=== PATIENT | male | born 1935 | race Asian ===

== ENCOUNTER 2019-08-04 13:06 | Inpatient (IN) | payer OTHER, BC ==
[~2019-08-04] VITALS: Ht 165.1 cm; Wt 59.0 kg
--- NOTE | 2019-08-04 13:21 | NUR ---
Patient to ER bed 3 to gown for evaluation. Side rails up. Report given to Dianne SIMON.
[2019-08-04 13:22] VITALS: BP_SYST 111
--- NOTE | 2019-08-04 13:22 | NUR ---
Pt brought by ambulance, Alert to name, pt presents to ER with abnormal labs, BUN and creatine , pt afebrile. VSS, respirations even and unlabored, cap refill <3, pt is no-verbal, will continue to monitor.
[2019-08-04 13:49] LABS: BASOPHILS % (AUTO) 0.7 % (0.0-2.0); EOSINOPHILS # (AUTO) 0.2 K/uL (0.0-0.4); EOSINOPHILS % (AUTO) 2.7 % (0.0-4.0); HEMATOCRIT 37.5 % (36-54); HEMOGLOBIN 12.1 g/dL (14.0-18.0); LYMPHOCYTES # (AUTO) 1.8 K/uL (1.0-5.5); LYMPHOCYTES % (AUTO) 29.1 % (20.5-51.5); MEAN CORPUSCULAR HEMOGLOBIN 29 pg (27-31); MEAN CORPUSCULAR HGB CONC 32 % (32-36); MEAN CORPUSCULAR VOLUME 90 fL (79.0-98.0); MONOCYTES # (AUTO) 0.6 K/uL (0.0-1.0); MONOCYTES % (AUTO) 9.5 % (1.7-9.3); NEUTROPHILS # (AUTO) 3.5 K/uL (1.8-7.7); PLATELET COUNT (AUTO) 241 K/uL (130-430); RED BLOOD CELL COUNT(AUTO) 4.18 MIL/uL (4.2-6.2); RED CELL DISTRIBUTION WIDTH 17.5 % (9.0-15.0)
--- NOTE | 2019-08-04 13:49 | NUR ---
REport given to Elier SIMON
[2019-08-04 14:01] LABS: ANION GAP 5 (5-15); CALCIUM 8.7 mg/dL (8.4-11.0); CHLORIDE 106 mmol/L (98-107); CREATININE 2.37 mg/dL (0.55-1.30); GLUCOSE 146 mg/dL (70-99); POTASSIUM 5.1 mmol/L (3.5-5.1); SODIUM SERUM 139 mmol/L (136-145); UREA NITROGEN, BLOOD 41 mg/dL (8-21)
[2019-08-04 14:06] LABS: ALANINE AMINOTRANSFERASE 13 U/L (12-78); ASPARTATE AMINOTRANSFERASE 19 U/L (10-37); TOTAL BILIRUBIN 0.3 mg/dL (0.0-1.0)
--- NOTE | 2019-08-04 14:10 | NUR ---
ER at bedside examining patient.
[2019-08-04] MEDS ORDERED: NS 500 ML IV ONE (14:30)
[2019-08-04] MEDS ORDERED: LEVO100T9 PO (15:59)
[2019-08-04] MEDS ORDERED: FENO160 PO (15:59)
[2019-08-04] MEDS ORDERED: PIOG30TA71 PO (15:59)
[2019-08-04] MEDS ORDERED: OMEP20CA11 PO (15:59)
[2019-08-04] MEDS ORDERED: INSU100V9 SQ (15:59)
[2019-08-04] MEDS ORDERED: EPOE1VIA13 SUBCUT (15:59)
[2019-08-04] MEDS ORDERED: NEPH PO (15:59)
[2019-08-04] MEDS ORDERED: DOCU-144 PO (15:59)
[2019-08-04] MEDS ORDERED: FERR140T2 PO (15:59)
[2019-08-04] MEDS ORDERED: SIMV40TA5 PO (15:59)
[2019-08-04] MEDS ORDERED: VITD2000 PO (15:59)
[2019-08-04] MEDS ORDERED: ENAL5TAB77 PO (15:59)
--- NOTE | 2019-08-04 16:00 | NUR ---
Medication reconsiliation completed based upon list of medications from SNF.
--- NOTE | 2019-08-04 17:00 | NUR ---
transferred care to [facility] RN. room assignment 113B. patient alert, awake, orientedx2, mongolian speaking, cc of abnormal labs, nonproductive cough noted. dx of renal insuffiency, vital sign stable, afebrile. belongings check and sent with patient. no other concerned noted.
--- NOTE | 2019-08-04 17:08 | NUR ---
Admission Note Received patient from ER with diagnosis of [RENAL INSUFFICIENCY]. Initial Plan of Care discussed-patient. Oriented to room, call light, pain management and safety. PATIENT WILL NEED FOLLOW UP ON ABOVE
--- NOTE | 2019-08-04 17:19 | NUR ---
CONSULTATION: REASON FOR CONSULT: RENAL INSUFFICIENCY CONSULTING PHYSICIAN: MARTHA GAMBOA MD ORDERED BY: KURT SPOKE WITH JOSS FROM [facility] [phone]
--- NOTE | 2019-08-04 17:24 | NUR ---
Initial Note SBAR received from [facility]. Patient AOx1. Pt brought to room via gurney. On room air, denies any pain or discomfort. Room close to nursing station. Bed in low and locked position, bed alarm on. Call light within reach.
[2019-08-04 17:25] VITALS: BP_SYST 134
[2019-08-04 18:24] LABS: BILIRUBIN,URINE NEGATIVE (NEGATIVE); BLOOD, URINE NEGATIVE (NEGATIVE); CLARITY/URINE CLEAR (CLEAR); COLOR,URINE YELLOW (YELLOW); GLUCOSE,URINE NEGATIVE (NEGATIVE); KETONES,URINE NEGATIVE (NEGATIVE); LEUKOCYTE ESTERASE ,URINE NEGATIVE (NEGATIVE); NITRITE, URINE NEGATIVE (NEGATIVE); PROTEIN URINE NEGATIVE (NEGATIVE)
--- NOTE | 2019-08-04 19:26 | NUR ---
CLOSING NOTE BEDSIDE SBAR REPORT GIVEN TO RECEIVING RN. PT RESTING IN BED. NO ACUTE DISTRESS NOTED. BREATHING EVEN AND UNLABORED. CALL LIGHT WITHIN REACH, BED IN LOW AND LOCKED POSITION, BED ALARM ON. PT CARE ENDORSED TO NUTRITION ASSOCIATE NURSE.
--- NOTE | 2019-08-04 19:50 | NUR ---
MD Dr. Alva, nephro made rounds, new consult, new orders received.
--- NOTE | 2019-08-04 20:00 | NUR ---
PM SHIFT ASSESSMENT Received patient lying in bed, aox1, vital signs stable, on room air, no facial grimacing noted for pain, IV line to right hand intact and patent, saline lock, no signs of infiltration noted, patient repositioned with pillow support, fall and safety measures in place, bed alarm on, oriented to call light for nurse assistance, light within reach, will monitor.
[2019-08-04 20:05] VITALS: BP_SYST 153
[2019-08-04 20:38] LABS: ANION GAP 5 (5-15); CALCIUM 8.4 mg/dL (8.4-11.0); CHLORIDE 107 mmol/L (98-107); CREATININE 2.26 mg/dL (0.55-1.30); GLUCOSE 142 mg/dL (70-99); SODIUM SERUM 139 mmol/L (136-145); UREA NITROGEN, BLOOD 40 mg/dL (8-21)
[2019-08-04] MEDS: DOCUSATE SODIUM 100 MG CAPSULE PO SCH (20:45)
[2019-08-04] MEDS ORDERED: INSULIN GLARGINE 100 UNITS/ML 10 ML VIAL SUBCUT SCH (21:00)
--- NOTE | 2019-08-04 22:30 | NUR ---
RN ROUNDS Patient awake, watching tv, denies any pain or discomfort, due medications administered earlier, blood sugar check 126, lantus 10 units given SQ per md order. Patient had a bowel movement, incontinence care provided, repositioned with pillow support, safety and fall precautions in place, will closely monitor.
--- NOTE | 2019-08-05 00:07 | NUR ---
Consultation Paged Reason for consultation: UTI Was consult called: Y Person who was notified: Mona Consulting Physician: Sly Ocampo Data Report Analyst Ordering Physician: Dr. Gilman
--- NOTE | 2019-08-05 00:28 | NUR ---
RN ROUNDS Patient sleeping, respirations even and unlabored, vital signs stable, repositioned with pillow support, fall and safety measures in place, will monitor.
[2019-08-05 01:00] VITALS: BP_SYST 144
--- NOTE | 2019-08-05 02:14 | NUR ---
RN ROUNDS Patient sleeping, respirations even and unlabored, fall and safety measures in place, will monitor.
--- NOTE | 2019-08-05 04:10 | NUR ---
RN ROUNDS Patient continues to sleep, respirations even and unlabored, repositioned for comfort, fall and safety measures in place, will continue to monitor.
[2019-08-05] MEDS: LEVOTHYROXINE SODIUM 0.1 MG TABLET PO SCH (05:52)
--- NOTE | 2019-08-05 06:03 | NUR ---
RN ROUNDS Patient awake and watching tv, in no distress, due medications administered, aspiration precautions maintained, repositioned with pillow support, fall and safety measures maintained, will continue to monitor until report given to am nurse.
[2019-08-05 07:30] VITALS: BP_SYST 151
--- NOTE | 2019-08-05 07:30 | NUR ---
AM rounds: Patient is alert. Able to state full name. Pointed out to his name band when asked for his birthday and age. Patient nodded his head when asked if he understood setswana. Does not appear in pain. Safety precautions in place. Call light within reach.
[2019-08-05 07:50] LABS: BASOPHILS % (AUTO) 0.8 % (0.0-2.0); EOSINOPHILS # (AUTO) 0.2 K/uL (0.0-0.4); EOSINOPHILS % (AUTO) 4.1 % (0.0-4.0); HEMATOCRIT 35.7 % (36-54); HEMOGLOBIN 11.6 g/dL (14.0-18.0); LYMPHOCYTES # (AUTO) 1.6 K/uL (1.0-5.5); LYMPHOCYTES % (AUTO) 31.7 % (20.5-51.5); MEAN CORPUSCULAR HEMOGLOBIN 29 pg (27-31); MEAN CORPUSCULAR HGB CONC 33 % (32-36); MEAN CORPUSCULAR VOLUME 89 fL (79.0-98.0); MONOCYTES # (AUTO) 0.5 K/uL (0.0-1.0); NEUTROPHILS # (AUTO) 2.6 K/uL (1.8-7.7); NEUTROPHILS % (AUTO) 52.4 % (40.0-70.0); PLATELET COUNT (AUTO) 236 K/uL (130-430); RED BLOOD CELL COUNT(AUTO) 3.99 MIL/uL (4.2-6.2)
[2019-08-05 08:04] LABS: ANION GAP 7 (5-15); CALCIUM 8.8 mg/dL (8.4-11.0); CHLORIDE 108 mmol/L (98-107); GLUCOSE 162 mg/dL (70-99); POTASSIUM 5.3 mmol/L (3.5-5.1); SODIUM SERUM 141 mmol/L (136-145); UREA NITROGEN, BLOOD 43 mg/dL (8-21)
[2019-08-05 08:19] LABS: ALANINE AMINOTRANSFERASE 15 U/L (12-78); ALBUMIN 2.8 g/dL (3.4-4.8); ASPARTATE AMINOTRANSFERASE 27 U/L (10-37); PHOSPHORUS 3.4 mg/dL (2.7-4.5); THYROID STIMULATING HORMONE 1.21 uIu/mL (0.36-3.74); TOTAL BILIRUBIN 0.4 mg/dL (0.0-1.0)
[2019-08-05] MEDS: SIMVASTATIN 40 MG TABLET PO SCH (09:12)
[2019-08-05] MEDS: FERROUS SULFATE 142 MG TABLET.ER PO SCH (09:12)
[2019-08-05] MEDS: LISINOPRIL 10 MG TABLET (PRINIVIL) PO SCH (09:13)
[2019-08-05] MEDS: PIOGLITAZONE HCL 15 MG TABLET PO SCH (09:13)
[2019-08-05] MEDS: FENOFIBRATE 160 MG TABLET PO SCH (09:13)
[2019-08-05] MEDS: NEPHROVITE, (FOLIC ACID/VITAMIN B COMP W-C 1 TAB) PO SCH (09:13)
[2019-08-05] MEDS: PANTOPRAZOLE SODIUM 40 MG TAB PO SCH (09:13)
[2019-08-05] MEDS: CHOLECALCIFEROL (VITAMIN D3) 2,000 UNIT TABLET PO SCH (09:13)
[2019-08-05] MEDS: DOCUSATE SODIUM 100 MG CAPSULE PO SCH ×2 (09:13→20:59)
--- NOTE | 2019-08-05 09:13 | NUR ---
AM MEDS: Meds were crushed and given with apple sauce. Patient was coughing when attempted to give pill uncrushed.
[2019-08-05 09:17] LABS: CHOLESTEROL 184 mg/dL (<200); HDL CHOLESTEROL 11 mg/dL (>45); LDL CHOLESTEROL 109 mg/dL (<100); TRIGLYCERIDES 346 mg/dL (30-150)
[2019-08-05 10:01] LABS: URINE SODIUM, RANDOM 120 mmol/L (40-220)
--- NOTE | 2019-08-05 10:03 | NUR ---
Nutrition Update Thiago Scale 18 noted. Pt admitted for renal insufficiency. Diet: 2 gm Na BMI: 21.6 kg/m2 RD to follow per nutrition care standards.
--- NOTE | 2019-08-05 10:45 | NUR ---
labs: Paged Dr. Roberts to report today's lab results.
[2019-08-05 11:31] VITALS: BP_SYST 133
--- NOTE | 2019-08-05 14:27 | NUR ---
Rounds: Patient is awake, no signs of distress noted.
[2019-08-05] MEDS ORDERED: SODIUM POLYSTYRENE SULFONATE 15 GM/60 ML UDBTL PO ONE (15:00)
--- NOTE | 2019-08-05 15:37 | NUR ---
Kayaxelate: Medication was given with aspiration precautions observed. Lab results were reported to Dr. Alva.
[2019-08-05 15:52] VITALS: BP_SYST 119
--- NOTE | 2019-08-05 19:50 | NUR ---
PM SHIFT ASSESSMENT Received patient lying in bed, aox1, vital signs stable, on room air, no facial grimacing noted for pain, IV line to right hand intact and patent, saline lock, no signs of infiltration noted, patient assisted with dinner, aspiration precautions maintained, fall and safety measures in place, bed alarm on, will monitor.
[2019-08-05 20:00] VITALS: BP_SYST 138
[2019-08-05] MEDS: INSULIN GLARGINE 100 UNITS/ML 10 ML VIAL SUBCUT SCH (21:05)
--- NOTE | 2019-08-05 22:00 | NUR ---
RN ROUNDS Patient awake, no facial grimacing noted for pain, due medications administered earlier, blood sugar check 144, lantus 10 units given SQ per md order. Patient had a bowel movement, incontinence care provided, repositioned with pillow support, safety and fall precautions in place, will closely monitor.
[2019-08-06 00:05] VITALS: BP_SYST 135
--- NOTE | 2019-08-06 00:07 | NUR ---
RN ROUNDS Patient resting quietly, respirations even and unlabored, vital signs stable, repositioned with pillow support, fall and safety measures in place, will monitor.
--- NOTE | 2019-08-06 02:09 | NUR ---
RN ROUNDS Patient sleeping, respirations even and unlabored, repositioned with pillow support, fall and safety measures in place, will monitor.
--- NOTE | 2019-08-06 04:02 | NUR ---
RN ROUNDS Patient awake, watching tv, no facial grimacing noted for pain, repositioned with pillow support, fall and safety measures in place, will monitor.
[2019-08-06] MEDS: LEVOTHYROXINE SODIUM 0.1 MG TABLET PO SCH (05:49)
--- NOTE | 2019-08-06 06:03 | NUR ---
RN ROUNDS Patient resting quietly, due medications administered, aspiration precautions maintained, repositioned with pillow support, fall and safety measures maintained, will continue to monitor until report given to am nurse.
[2019-08-06 07:19] LABS: BASOPHILS % (AUTO) 0.6 % (0.0-2.0); EOSINOPHILS # (AUTO) 0.3 K/uL (0.0-0.4); EOSINOPHILS % (AUTO) 5.5 % (0.0-4.0); HEMOGLOBIN 12.6 g/dL (14.0-18.0); LYMPHOCYTES # (AUTO) 1.5 K/uL (1.0-5.5); LYMPHOCYTES % (AUTO) 31.3 % (20.5-51.5); MEAN CORPUSCULAR HEMOGLOBIN 29 pg (27-31); MEAN CORPUSCULAR HGB CONC 32 % (32-36); MEAN CORPUSCULAR VOLUME 90 fL (79.0-98.0); MONOCYTES # (AUTO) 0.5 K/uL (0.0-1.0); MONOCYTES % (AUTO) 9.2 % (1.7-9.3); NEUTROPHILS # (AUTO) 2.6 K/uL (1.8-7.7); NEUTROPHILS % (AUTO) 53.4 % (40.0-70.0); PLATELET COUNT (AUTO) 244 K/uL (130-430); RED BLOOD CELL COUNT(AUTO) 4.36 MIL/uL (4.2-6.2); RED CELL DISTRIBUTION WIDTH 17.7 % (9.0-15.0); WHITE BLOOD COUNT (AUTO) 4.9 K/uL (4.8-10.8)
[2019-08-06 07:30] LABS: ANION GAP 6 (5-15); CALCIUM 8.8 mg/dL (8.4-11.0); CHLORIDE 109 mmol/L (98-107); GLUCOSE 74 mg/dL (70-99); POTASSIUM 4.4 mmol/L (3.5-5.1); SODIUM SERUM 144 mmol/L (136-145); UREA NITROGEN, BLOOD 34 mg/dL (8-21)
[2019-08-06 08:05] VITALS: BP_SYST 155
[2019-08-06] MEDS: CHOLECALCIFEROL (VITAMIN D3) 2,000 UNIT TABLET PO SCH (08:14)
[2019-08-06] MEDS: SIMVASTATIN 40 MG TABLET PO SCH (08:14)
[2019-08-06] MEDS: DOCUSATE SODIUM 100 MG CAPSULE PO SCH ×2 (08:14→20:42)
[2019-08-06] MEDS: LISINOPRIL 10 MG TABLET (PRINIVIL) PO SCH (08:14)
[2019-08-06] MEDS: PIOGLITAZONE HCL 15 MG TABLET PO SCH (08:14)
[2019-08-06] MEDS: PANTOPRAZOLE SODIUM 40 MG TAB PO SCH (08:14)
[2019-08-06] MEDS: NEPHROVITE, (FOLIC ACID/VITAMIN B COMP W-C 1 TAB) PO SCH (08:15)
[2019-08-06] MEDS: FENOFIBRATE 160 MG TABLET PO SCH (08:15)
--- NOTE | 2019-08-06 08:20 | NUR ---
AM rounds: Patient is alert. Able to state full name. Crushed AM meds and given with apple sauce. Aspiration precautions observed . Does not appear in pain. Safety precautions in place. Call light within reach.
[2019-08-06] MEDS: FERROUS SULFATE 142 MG TABLET.ER PO SCH (08:40)
--- NOTE | 2019-08-06 12:30 | NUR ---
MD rounds: Seen by Dr. Alva, noted of today's labs. New order noted.
[2019-08-06 13:10] VITALS: BP_SYST 138
[2019-08-06 13:50] LABS: CREATININE, URINE 60.5 mg/dL; MICROALBUMIN URINE RANDOM 74.7 ug/ml (NOT ESTABLISHED); MICROALBUMIN/CREAT RATIO, UR 123.5 MG/G CRE (0.0-30.0)
--- NOTE | 2019-08-06 15:40 | NUR ---
Rounds: Patient is offered water with aspiration precautions.
[2019-08-06 17:06] VITALS: BP_SYST 140
--- NOTE | 2019-08-06 17:06 | NUR ---
Discharge Planning: DCP faxed to [facility] (f [phone] p [phone]) DCP to follow up
--- NOTE | 2019-08-06 17:43 | NUR ---
Call from [facility]: Received call from [facility] [phone], was informed that they can accept the patient back in am so patient can qualify for skilled services.
--- NOTE | 2019-08-06 18:09 | NUR ---
END OF SHIFT: Needs attended. No change in assessment.
--- NOTE | 2019-08-06 19:20 | NUR ---
CHANGE OF SHIFT; pt. on high fowlers position, trying to feed himself. awake, alert,little Setswana, kinyarwanda speaking. 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 for further care. call light at bedside.
--- NOTE | 2019-08-06 20:30 | NUR ---
NOTES: did not finish his tray, gave his ice cream and tolerated, on aspiration precautions. HOB elevated.
[2019-08-06] MEDS: INSULIN GLARGINE 100 UNITS/ML 10 ML VIAL SUBCUT SCH (20:47)
[2019-08-06 21:00] VITALS: BP_SYST 126
--- NOTE | 2019-08-06 22:00 | NUR ---
NOTES: pt. calm and resting, repositioned.
--- NOTE | 2019-08-06 23:00 | NUR ---
NOTES; pt. checked, incontinent of urine, due hs and damari care done. kept dry, repositioned.
[2019-08-07 00:19] VITALS: BP_SYST 108
--- NOTE | 2019-08-07 00:48 | NUR ---
NOTES: pt. sleeping when checked. condition observed.
--- NOTE | 2019-08-07 02:57 | NUR ---
NOTES: pt. awake when checked, given chocolate pudding since insulin was given last night, able to swallow pudding, HOB elevated. continue to monitor.
--- NOTE | 2019-08-07 04:16 | NUR ---
NOTES: pt. went back to sleep, continue to monitor.
--- NOTE | 2019-08-07 06:00 | NUR ---
NOTES: pt. condition unchanged. pretty dry when checked. repositioned.
[2019-08-07] MEDS: LEVOTHYROXINE SODIUM 0.1 MG TABLET PO SCH (06:34)
--- NOTE | 2019-08-07 06:45 | NUR ---
CLOSING NOTES; checked BS 122, no sliding scale , will endorse to inform MD for sliding scale. IV lock intact. safety measures in place. call light within reach. pt. aphasic. for further care and assistance.
--- NOTE | 2019-08-07 07:45 | NUR ---
PATIENT IS AWAKE, OPENS EYES, A/OX1. HAVING BREAKFAST AT THIS TIME, TOLERATED WITHOUT DISTRESS.
[2019-08-07 07:58] LABS: ANION GAP 6 (5-15); CALCIUM 8.8 mg/dL (8.4-11.0); CHLORIDE 108 mmol/L (98-107); CREATININE 2.41 mg/dL (0.55-1.30); GLUCOSE 107 mg/dL (70-99); POTASSIUM 4.5 mmol/L (3.5-5.1); SODIUM SERUM 143 mmol/L (136-145); UREA NITROGEN, BLOOD 44 mg/dL (8-21)
[2019-08-07 08:09] VITALS: BP_SYST 133
[2019-08-07] MEDS: NEPHROVITE, (FOLIC ACID/VITAMIN B COMP W-C 1 TAB) PO SCH (08:15)
[2019-08-07] MEDS: PANTOPRAZOLE SODIUM 40 MG TAB PO SCH (08:15)
[2019-08-07] MEDS: CHOLECALCIFEROL (VITAMIN D3) 2,000 UNIT TABLET PO SCH (08:15)
[2019-08-07] MEDS: SIMVASTATIN 40 MG TABLET PO SCH (08:15)
[2019-08-07] MEDS: FENOFIBRATE 160 MG TABLET PO SCH (08:15)
[2019-08-07] MEDS: PIOGLITAZONE HCL 15 MG TABLET PO SCH (08:16)
[2019-08-07] MEDS: DOCUSATE SODIUM 100 MG CAPSULE PO SCH (08:16)
[2019-08-07] MEDS: LISINOPRIL 10 MG TABLET (PRINIVIL) PO SCH (08:16)
[2019-08-07] MEDS: FERROUS SULFATE 142 MG TABLET.ER PO SCH (08:17)
[2019-08-07] MEDS ORDERED: EPOETIN ALFA 10,000 UNITS/ML VIAL SUBCUT SCH (09:00)
--- NOTE | 2019-08-07 10:00 | NUR ---
PATIENT IS TURNED AND REPOSITIONED FOR COMFORT.
--- NOTE | 2019-08-07 10:59 | NUR ---
Discharge Planning: DCP spoke with [facility] at [facility] (f [phone] p [phone]) pt accepted to [facility], pending DC order. Addendum: 08/07/19 at 1351 by Cecy Roberts [facility] (f [phone] p [phone]) [facility], [facility] ([phone]) 4:00pm P/U nurse made aware patient packet taken to nurse station.
[2019-08-07 12:00] VITALS: BP_SYST 114
--- NOTE | 2019-08-07 12:33 | NUR ---
DR. HICKS IS ASKED IF THE PATIENT CAN RETURN TO SNF FOR BUN/CR OF 44/2.41. HE IS AGREEABLE WITH THE PATIENT GOING BACK.
--- NOTE | 2019-08-07 14:25 | NUR ---
PATIENT IS RESTING, NO SIGNS OF DISTRESS NOTED.
--- NOTE | 2019-08-07 16:40 | NUR ---
PT TRANSFERRED Report given to JEFFERY at [facility]. Transfer packet with Transfer Orders and Medication Reconciliation form given to EMT with report. Exitcare provided. [facility] ID band removed, replaced with ID band with pt's name and . All belongings sent with patient. Patient left floor via gurney escorted by EMT in no distress.
[2019-08-07 16:59] VITALS: BP_SYST 142
== END 2019-08-07 16:40 | DRG 682 ==
LOC: SED 13:06 → SMU 16:09
PROVIDERS: ADMIT Internal Medicine; ATTEND Internal Medicine
DX: N17.9 Acute kidney failure, unspecified (principal); E43 Unspecified severe protein-calorie malnutrition; I69.354 Hemiplegia and hemiparesis following cerebral infarction affecting left non-dominant side; D63.8 Anemia in other chronic diseases classified elsewhere; E03.9 Hypothyroidism, unspecified; E11.22 Type 2 diabetes mellitus with diabetic chronic kidney disease; I12.9 Hypertensive chronic kidney disease with stage 1 through stage 4 chronic kidney disease, or unspecified chronic kidney disease; J44.9 Chronic obstructive pulmonary disease, unspecified; N18.9 Chronic kidney disease, unspecified; E78.5 Hyperlipidemia, unspecified; E87.5 Hyperkalemia; F03.90 Unspecified dementia, unspecified severity, without behavioral disturbance, psychotic disturbance, mood disturbance, and anxiety; F32.9 Major depressive disorder, single episode, unspecified; F41.9 Anxiety disorder, unspecified; I00 Rheumatic fever without heart involvement; I25.10 Atherosclerotic heart disease of native coronary artery without angina pectoris; M10.9 Gout, unspecified; I69.320 Aphasia following cerebral infarction; Z95.1 Presence of aortocoronary bypass graft; Z68.21 Body mass index [BMI] 21.0-21.9, adult; Z79.899 Other long term (current) drug therapy
CPT/HCPCS: 36415; 76770; 80048; 80053; 80061; 81003; 82043; 82570; 82570-TC; 82962; 83036; 83735-TC; 84100-TC; 84302-TC; 84443-TC; 84550-TC; 85025; 87081; 87086; 96360; 99285; J0885; J1815; J7040